=== PATIENT | male | born 1960 | race Two or more races ===

== ENCOUNTER 2017-08-03 10:17 | Day surgery (SDC) | payer OTHER ==
[2017-08-03] MEDS ORDERED: MIDAZOLAM 1 MG/ML 2 ML INJ ×3 (13:14)
[2017-08-03] MEDS ORDERED: FENTAnyl 50 MCG/ML VIAL (13:14)
== END 2017-08-03 14:22 | disposition home or self-care (01) ==
LOC: GIL 10:17
DX: K92.1 Melena (principal); D12.5 Benign neoplasm of sigmoid colon; K64.8 Other hemorrhoids; I10 Essential (primary) hypertension
CPT/HCPCS: 45380; 88305